=== PATIENT | female | born 1985 | race Caucasian/White ===

== ENCOUNTER → 2018-08-14 | Day surgery (SDC) | payer OTHER ==
[~2018-08-14] MED LIST: ACETAMINOPHEN/CODEINE 300MG - 30MG TAB ONE; BUPIVACAINE HCL 0.5% INJ 30 ML VIAL INJ ONE; CEFAZOLIN SOD 1 GM VIAL ONE; DEXAMETHASONE SOD PHOS INJ 4 MG/ML VIAL ONE; FENTANYL CITRATE/PF 100MCG/2 ML INJ ONE; KETOROLAC TROMETHAMINE 30 MG/ML VIAL ONE; LIDOCAINE HCL 2% LOCAL INJ 5 ML SDV VIAL INJ ONE; METOCLOPRAMIDE HCL 10 MG/2ML VIAL ONE; MIDAZOLAM HCL 2 MG/2 ML VIAL ONE; NAPROXEN500 MG PO; ONDANSETRON HCL INJ 2 MG/ML VIAL ONE; PROPOFOL IV EMULSION 10 MG/ML 20 ML VIAL ONE; TRAZODONE PO
--- NOTE | 2018-08-14 08:43 | Operative Report ---
DATE OF PROCEDURE: August 14, 2018 SURGEON: Faheem SANTIZO D.P.M SOCIAL SERVICES SPECIALIST SURGEON: Pete HWANG D.P.M PREOPERATIVE DIAGNOSIS: Heel spur, left foot. POSTOPERATIVE DIAGNOSIS: Heel spur, left foot. OPERATIVE PROCEDURE: Excision of heel spur, left foot. DETAILS OF PROCEDURE: The patient was placed on the OR table in the supine position. The left lower extremity was prepped and draped in the usual manner. A general anesthetic was administered, and hemostasis accomplished using a pneumatic cuff set at 350 mmHg at thigh level. An incision approximately 4 cm in length was made on the medial aspect of the left heel. The incision was deepened, exposing the plantar fascia. The plantar fascia was then released from the plantar aspect of the calcaneus. This exposed the heel spur, which was then removed with an osteotome and mallet, and was smoothed with a hand rasp. The wound was then flushed with sterile saline solution. A size 7 TLS drain was inserted into the wound. The subcutaneous tissue closed with 3-0 Vicryl and the skin with 4-0 nylon. Following the procedure, 9 mL of 0.5 Marcaine and 1 mL of Decadron were injected. A sterile compression dressing was then applied. At this time, the pneumatic cuff was released, and a reflex hyperemia was observed to all digits. The patient tolerated the procedure and anesthesia well, and left the OR to recovery in good condition with vital signs stable. Job#: [id number] CL[place] MA
[2018-08-14 09:10] VITALS: BP 105/79
== END | disposition home or self-care (01) ==
LOC: OR 05:02
PROVIDERS: ATTEND Podiatrist Foot & Ankle Surgery
DX: M77.32 Calcaneal spur, left foot (principal)
CPT/HCPCS: 28119; 81025; J0690; J1100; J1885; J2001; J2250; J2405; J2765